=== PATIENT | male | born 1965 | race Caucasian/White ===

== ENCOUNTER 2017-05-05 03:10 | Emergency (ER) | payer OTHER ==
[~2017-05-05] VITALS: Ht 162.6 cm; Wt 45.4 kg
[~2017-05-05 03:10] MED LIST: ACET500 PT; AMOX250 PO; ANUCORT-HC SUPP; AZIT250 PO; Anucort-Hc25 MG PR; BENZ100A PO; BISA5EC GT; BISA5EC PO; CALMOSEPTINE O3.5 GM TP; CEPH250SUA PT; CETI5 PO; CETI5 PT; CLIN300 PT; COLON HEALTH; CVS DISPOSABLE399 ML PR; Docu Liqui50 MG/5 ML PT; EAR WAX DROPS15 ML BOTHEARS; ERYT.5TO BOTHEYES; ERYT.5TO OU; FLUO10 GT; FLUO20 PO; Fluoxetine HCl20 M1 PT; HYDACE25S; HYDR25SUP PR; JEVITY 1.2 CAL237 ML PO; LAVAP17G GT; LEVFLO500 PO; LEVSOD50 PO; LISI5 GT; LISI5 PO; METO10SY PO; MIRALAX119 GM PT; NYST100TC; OXYB5 GT; OXYB5 PO; POLY17UD PO; PSEU120ER PO; Prevacid Soluta30 MG PT; Triple Antibio1 EACH; Zofran Odt4 MG SL; [UNRECOGNIZED DRUG - SUPPLY]
[2018-02-10] MEDS ORDERED: LANS30EC (16:32)
[2018-02-10] MEDS ORDERED: MIRALAX17 GM (16:33)
== END 2017-05-05 03:55 | disposition home or self-care (01) ==
LOC: ER 03:10
DX: K94.23 Gastrostomy malfunction (principal); Z79.899 Other long term (current) drug therapy; Z79.2 Long term (current) use of antibiotics
CPT/HCPCS: 43760; 99282

== ENCOUNTER 2017-07-20 21:01 | Emergency (ER) | payer OTHER ==
[~2017-07-20] VITALS: Ht 154.9 cm; Wt 45.4 kg
[2017-07-20] MEDS ORDERED: Milk Of Ma400 MG/5 M PO (21:23)
[2017-07-20] MEDS ORDERED: [UNRECOGNIZED DRUG - CODE] PO (21:23)
[2017-07-20] MEDS ORDERED: LISI5 (21:25)
[2017-07-20] MEDS ORDERED: OXYB5 PO (21:27)
== END 2017-07-20 22:52 | disposition home or self-care (01) ==
LOC: ER 21:01
DX: K94.23 Gastrostomy malfunction (principal); Z79.899 Other long term (current) drug therapy; Z79.2 Long term (current) use of antibiotics
CPT/HCPCS: 43760; 74018; 99283; Q9963

== ENCOUNTER 2017-08-27 12:04 | Emergency (ER) | payer OTHER ==
[~2017-08-27] VITALS: Ht 152.4 cm; Wt 52.2 kg
[~2017-08-27 12:04] MED LIST changes: +LISI5; +Milk Of Ma400 MG/5 M PO; +[UNRECOGNIZED DRUG - CODE] PO
[2017-08-27] MEDS ORDERED: Mucus Relief400 MG PT (12:52)
[2017-08-27] MEDS ORDERED: MIRALAX17 GM PO (12:52)
[2017-08-27 13:33] LABS: Source, Urine Catheter
[2017-08-27 13:38] LABS: Bilirubin, Urine Neg (Neg); Blood, Urine 1+ (Neg); Glucose Qualitative, Urine Neg (Neg); Ketones, Urine Neg (Neg); Leukocyte Esterase, Urine 2+ (Neg); Nitrite, Urine Neg (Neg); Protein, Urine Neg (Neg); Urobilinogen, Urine NORM (Normal)
[2017-08-27 13:49] LABS: Appearance, Urine Clear (Clear); Color, Urine Pale Yellow (P-Yellow)
[2017-08-27 13:53] LABS: Red Blood Cells, Urine Not Seen /hpf (0-2); Squamous Epithelial Cells Few /hpf (Few)
[2017-08-27 13:54] LABS: Bacteria Few /hpf
[2017-08-27 14:08] LABS: BASOPHILS ABSOLUTE AUTO 0.04 K/mm3 (0.00-0.23); BASOPHILS PERCENT AUTO 1 % (0-2); EOSINOPHILS ABSOLUTE AUTO 0.23 K/mm3 (0.00-0.68); EOSINOPHILS PERCENT AUTO 3 % (0-6); Hematocrit 46.5 % (37.0-53.0); Hemoglobin 15.6 g/dL (13.5-17.5); IMMATURE GRAN ABSOLUTE AUTO 0.09 K/mm3 (0.00-0.10); IMMATURE GRAN PERCENT AUTO 1 % (0-1); LYMPHOCYTES ABSOLUTE AUTO 1.12 K/mm3 (0.84-5.20); LYMPHOCYTES PERCENT AUTO 13 % (21-46); MONOCYTES ABSOLUTE AUTO 0.73 K/mm3 (0.16-1.47); MONOCYTES PERCENT AUTO 8 % (4-13); Mean Corpuscular HGB 30.9 pg (26.0-34.0); Mean Corpuscular HGB Conc 33.5 g/dL (31.5-36.5); Mean Corpuscular Volume 92 fL (80-100); Mean Platelet Volume 11.4 fL (9.1-12.4); NEUTROPHILS ABSOLUTE AUTO 6.45 K/mm3 (1.96-9.15); NEUTROPHILS PERCENT AUTO 75 % (41-73); Platelet Count 199 K/mm3 (150-400); RDW Coefficient Variation 12.5 % (11.7-14.2); Red Blood Cell Count 5.05 M/mm3 (4.30-5.90); White Blood Cell Count 8.66 K/mm3 (4.00-11.30)
[2017-08-27 14:21] LABS: Anion Gap 9 mmol/L (6-16); Blood Urea Nitrogen 19 mg/dL (8-24); Bun/Creatinine Ratio 44.5 (12.0-20.0); CO2, Blood 26 mmol/L (21-32); Calcium, Blood 8.8 mg/dL (8.5-10.1); Chloride, Blood 106 mmol/L (98-108); Creatinine, Blood 0.43 mg/dL (0.60-1.20); Glomerular Filtration Rate >60 (60-); Glucose, Blood 91 mg/dL (70-99); Potassium, Blood 4.1 mmol/L (3.5-5.5); Sodium, Blood 141 mmol/L (136-145)
[2017-08-27] MEDS ORDERED: Indomethacin50 MG PO (14:42)
[2017-08-27] MEDS ORDERED: CEPH500 PO (14:42)
[2017-08-27] MEDS ORDERED: Prednisone20 MG PO (14:42)
== END 2017-08-27 15:40 | disposition home or self-care (01) ==
LOC: ER 12:04
PROVIDERS: Emergency Medicine
DX: L60.0 Ingrowing nail (principal); N39.0 Urinary tract infection, site not specified; Z79.899 Other long term (current) drug therapy
CPT/HCPCS: 73620; 80048; 81001; 85025; 87086; 99283

== ENCOUNTER 2017-11-09 13:06 | Emergency (ER) | payer OTHER ==
[~2017-11-09] VITALS: Ht 152.4 cm; Wt 49.9 kg
[~2017-11-09 13:06] MED LIST changes: +CEPH500 PO; +Indomethacin50 MG PO; +MIRALAX17 GM PO; +Mucus Relief400 MG PT; +Prednisone20 MG PO
== END 2017-11-09 14:50 | disposition home or self-care (01) ==
LOC: ER 13:06
DX: Z43.1 Encounter for attention to gastrostomy (principal); Z79.899 Other long term (current) drug therapy; Z79.52 Long term (current) use of systemic steroids
CPT/HCPCS: 43760; 74018; 99282-25; Q9963

== ENCOUNTER 2018-01-19 19:57 | Emergency (ER) | payer OTHER ==
[~2018-01-19] VITALS: Ht 152.4 cm; Wt 49.9 kg
[2018-01-19 20:37] LABS: Source, Urine Catheter
[2018-01-19 20:40] LABS: Bilirubin, Urine Neg (Neg); Blood, Urine Neg (Neg); Glucose Qualitative, Urine Neg (Neg); Ketones, Urine Neg (Neg); Leukocyte Esterase, Urine 1+ (Neg); Nitrite, Urine Neg (Neg); Protein, Urine Neg (Neg); Urobilinogen, Urine NORM (Normal)
[2018-01-19 20:53] LABS: Appearance, Urine Hazy (Clear); Color, Urine Yellow (P-Yellow)
[2018-01-19 20:56] LABS: Bacteria Mod /hpf; Red Blood Cells, Urine Not Seen /hpf (0-2); Squamous Epithelial Cells Not Seen /hpf (Few); White Blood Cells, Urine 25-50 /hpf (0-5)
[2018-01-19 20:57] LABS: Amorphous Light (0-Heavy); Triple Phosphate Crystals Mod /hpf
[2018-01-19 21:24] LABS: BASOPHILS ABSOLUTE AUTO 0.04 K/mm3 (0.00-0.23); BASOPHILS PERCENT AUTO 1 % (0-2); EOSINOPHILS ABSOLUTE AUTO 0.37 K/mm3 (0.00-0.68); EOSINOPHILS PERCENT AUTO 5 % (0-6); IMMATURE GRAN ABSOLUTE AUTO 0.06 K/mm3 (0.00-0.10); IMMATURE GRAN PERCENT AUTO 1 % (0-1); LYMPHOCYTES ABSOLUTE AUTO 1.15 K/mm3 (0.84-5.20); LYMPHOCYTES PERCENT AUTO 15 % (21-46); MONOCYTES ABSOLUTE AUTO 0.68 K/mm3 (0.16-1.47); MONOCYTES PERCENT AUTO 9 % (4-13); Mean Corpuscular HGB 30.9 pg (26.0-34.0); Mean Corpuscular HGB Conc 33.3 g/dL (31.5-36.5); Mean Corpuscular Volume 93 fL (80-100); Mean Platelet Volume 10.5 fL (9.1-12.4); NEUTROPHILS ABSOLUTE AUTO 5.29 K/mm3 (1.96-9.15); NEUTROPHILS PERCENT AUTO 70 % (41-73); Platelet Count 427 K/mm3 (150-400); RDW Coefficient Variation 12.4 % (11.7-14.2); Red Blood Cell Count 4.85 M/mm3 (4.30-5.90); White Blood Cell Count 7.59 K/mm3 (4.00-11.30)
[2018-01-19 21:39] LABS: Alanine Aminotransfer (ALT/SGP 28 U/L (12-78); Albumin, Blood 3.3 g/dL (3.4-5.0); Albumin/Globulin Ratio 0.7 (0.8-1.8); Alk Phos 100 U/L (50-136); Anion Gap 10 mmol/L (6-16); Aspartate Aminotrans (AST/SGOT 15 U/L (12-37); Bilirubin, Total 0.6 mg/dL (0.1-1.0); Blood Urea Nitrogen 16 mg/dL (8-24); Bun/Creatinine Ratio 42.4 (12.0-20.0); CO2, Blood 25 mmol/L (21-32); Calcium, Blood 8.7 mg/dL (8.5-10.1); Chloride, Blood 105 mmol/L (98-108); Creatinine, Blood 0.38 mg/dL (0.60-1.20); Globulin, Blood 4.9 g/dL (2.2-4.0); Glomerular Filtration Rate >60 (60-); Glucose, Blood 93 mg/dL (70-99); Potassium, Blood 4.2 mmol/L (3.5-5.5); Sodium, Blood 140 mmol/L (136-145); Total Protein, Blood 8.2 g/dL (6.4-8.2)
== END 2018-01-19 22:50 | disposition home or self-care (01) ==
LOC: ER 19:57
PROVIDERS: Internal Medicine
DX: R10.9 Unspecified abdominal pain (principal); Z79.899 Other long term (current) drug therapy; Z87.442 Personal history of urinary calculi
CPT/HCPCS: 36415; 74176; 80053; 81001; 85025; 87077; 87086; 87186; 96374; 99284-25; J1885

== ENCOUNTER → 2018-04-11 | Outpatient (CLI) | payer OTHER ==
[~2018-04-11] MED LIST changes: +LANS30EC; +MIRALAX17 GM
== END | disposition home or self-care (01) ==
LOC: LAB SHORT 16:39 → LAB 16:39
DX: L08.0 Pyoderma (principal)
CPT/HCPCS: 87070; 87205

== ENCOUNTER 2018-04-24 12:29 | Emergency (ER) | payer OTHER ==
[~2018-04-24] VITALS: Ht 152.4 cm; Wt 49.9 kg
== END 2018-04-24 15:10 | disposition home or self-care (01) ==
LOC: ER 12:29
DX: K94.23 Gastrostomy malfunction (principal); Z79.899 Other long term (current) drug therapy
CPT/HCPCS: 49465; 99283-25; Q9963

== ENCOUNTER 2019-07-11 00:21 | Day surgery (SDC) | payer OTHER | END 2019-07-11 22:55 | disposition home or self-care (01) | LOC: WOUND 00:21 | DX: L89.891 Pressure ulcer of other site, stage 1 (principal); Z79.899 Other long term (current) drug therapy | CPT/HCPCS: G0463 ==

== ENCOUNTER 2019-08-01 00:15 | Day surgery (SDC) | payer OTHER | END 2019-08-01 22:41 | disposition home or self-care (01) | LOC: WOUND 00:15 | DX: L89.91 Pressure ulcer of unspecified site, stage 1 (principal); E03.9 Hypothyroidism, unspecified; Z79.899 Other long term (current) drug therapy | CPT/HCPCS: G0463 ==

== ENCOUNTER 2019-08-17 10:30 | Day surgery (SDC) | payer OTHER ==
[~2019-08-17] VITALS: Ht 152.4 cm; Wt 57.7 kg
--- NOTE | 2019-08-17 11:39 | NUR ---
08/17/19 1139 Vidya Ramachandran PATIENT IS NON VERBAL BUT AWARE AND ANSWERS QUESTIONS BY BLINKING AND SHAKING HIS HEAD. HE RESPONDS APPROPRIATELY TO ALL QUESTIONS, LAUGHS AT JOKES AND IS AWARE OF ALL THAT IS GOING ON AROUND HIM. PATIENT AGREES WITH HIS CAREGIVER TO SIGN CONSENTS
--- NOTE | 2019-08-17 15:07 | NUR ---
08/17/19 1507 Vidya Ramachandran LATE ENTRY------IV ANCEF 2GMS WAS ORDERED BY DR BECERRIL AT THE END OF THE PROCEDURE. THIS WAS STARTED AT 1229 AND FINISHED BY 1245. THE PATIENT TOLERATED THIS WELL AND THERE WAS NO PROBLEMS. I REMOVED THE IV AT 1250, THE SITE WAS CLEAR AND THERE WAS APPX 800ML OF LR LEFT IN THE BAG. THE PATIENT CARE WAS TURNED OVER TO AB KESSLER AT 1258
== END 2019-08-17 13:26 | disposition home or self-care (01) ==
LOC: ORSCSDS 10:30
PROVIDERS: Internal Medicine Gastroenterology
PROC: 0DH63UZ Insertion of Feeding Device into Stomach, Percutaneous Approach (ICD-10-PCS; principal; 2019-08-17 11:45)
DX: K94.23 Gastrostomy malfunction (principal); K44.9 Diaphragmatic hernia without obstruction or gangrene; K31.7 Polyp of stomach and duodenum; G80.9 Cerebral palsy, unspecified; I10 Essential (primary) hypertension; Z79.899 Other long term (current) drug therapy
CPT/HCPCS: C1769; J0690; J2704; J7120

== ENCOUNTER 2019-12-05 13:49 | Emergency (ER) | payer OTHER ==
[~2019-12-05] VITALS: Ht 157.5 cm; Wt 50.8 kg
[2019-12-05] MEDS ORDERED: ALUMINUM H320 MG/5 M PO (18:59)
[2019-12-05] MEDS ORDERED: NYAMYC15 G2 TP (19:00)
[2019-12-05] MEDS ORDERED: ONDA4ODT MM (19:00)
[2019-12-05 19:25] LABS: BASOPHILS ABSOLUTE AUTO 0.04 K/mm3 (0.00-0.23); BASOPHILS PERCENT AUTO 0 % (0-2); EOSINOPHILS ABSOLUTE AUTO 0.21 K/mm3 (0.00-0.68); EOSINOPHILS PERCENT AUTO 2 % (0-6); Hematocrit 48.8 % (37.0-53.0); Hemoglobin 14.5 g/dL (13.5-17.5); IMMATURE GRAN ABSOLUTE AUTO 0.05 K/mm3 (0.00-0.10); IMMATURE GRAN PERCENT AUTO 1 % (0-1); LYMPHOCYTES ABSOLUTE AUTO 1.03 K/mm3 (0.84-5.20); LYMPHOCYTES PERCENT AUTO 10 % (21-46); MONOCYTES ABSOLUTE AUTO 0.75 K/mm3 (0.16-1.47); MONOCYTES PERCENT AUTO 7 % (4-13); Mean Corpuscular HGB 29.2 pg (26.0-34.0); Mean Corpuscular HGB Conc 29.7 g/dL (31.5-36.5); Mean Corpuscular Volume 98 fL (80-100); Mean Platelet Volume 11.8 fL (9.1-12.4); NEUTROPHILS ABSOLUTE AUTO 8.36 K/mm3 (1.96-9.15); NEUTROPHILS PERCENT AUTO 80 % (41-73); Platelet Count 337 K/mm3 (150-400); RDW Coefficient Variation 16.5 % (11.7-14.2); RDW Standard Deviation 59.6 fL (35.1-46.3); Red Blood Cell Count 4.97 M/mm3 (4.30-5.90); White Blood Cell Count 10.44 K/mm3 (4.00-11.30)
[2019-12-05 19:42] LABS: Alanine Aminotransfer (ALT/SGP 21 U/L (12-78); Albumin, Blood 2.9 g/dL (3.4-5.0); Albumin/Globulin Ratio 0.4 (0.8-1.8); Alk Phos 114 U/L (50-136); Anion Gap 7 mmol/L (6-16); Aspartate Aminotrans (AST/SGOT 9 U/L (12-37); Bilirubin, Total 0.8 mg/dL (0.1-1.0); Blood Urea Nitrogen 84 mg/dL (8-24); Bun/Creatinine Ratio 81.6 (12.0-20.0); CO2, Blood 25 mmol/L (21-32); Calcium, Blood 10.2 mg/dL (8.5-10.1); Chloride, Blood 123 mmol/L (98-108); Creatinine, Blood 1.03 mg/dL (0.60-1.20); Globulin, Blood 6.5 g/dL (2.2-4.0); Glomerular Filtration Rate >60 (60-); Glucose, Blood 143 mg/dL (70-99); Potassium, Blood 3.8 mmol/L (3.5-5.5); Sodium, Blood 155 mmol/L (136-145); Total Protein, Blood 9.4 g/dL (6.4-8.2)
[2019-12-05] MEDS ORDERED: HYDROCODON-ACET15 ML PT (21:22)
== END 2019-12-05 21:52 | disposition home or self-care (01) ==
LOC: ER 13:49
PROVIDERS: Physician Assistant
DX: M79.651 Pain in right thigh (principal); M79.652 Pain in left thigh; E86.0 Dehydration; Z79.899 Other long term (current) drug therapy
CPT/HCPCS: 36415; 72100; 72170; 73552; 80053; 85025; 99283-25

== ENCOUNTER 2020-01-03 11:06 | Observation (INO) | payer OTHER ==
[~2020-01-03] VITALS: Ht 152.4 cm; Wt 49.9 kg
[~2020-01-03 11:06] MED LIST changes: +ALUMINUM H320 MG/5 M PO; -CETI5 PT; +EUTHYROX50 MCG PT; +HYDROCODON-ACET15 ML PT; -LEVSOD50 PO; +NYAMYC15 G2 TP; +ONDA4ODT MM; +ZYRTEC10 M2 PT
[2020-01-03 13:58] LABS: Alanine Aminotransfer (ALT/SGP 26 U/L (12-78); Albumin, Blood 2.8 g/dL (3.4-5.0); Albumin/Globulin Ratio 0.5 (0.8-1.8); Alk Phos 113 U/L (50-136); Anion Gap 4 mmol/L (6-16); Aspartate Aminotrans (AST/SGOT 22 U/L (12-37); Bilirubin, Total 0.4 mg/dL (0.1-1.0); Blood Urea Nitrogen 79 mg/dL (8-24); Bun/Creatinine Ratio 106.3 (12.0-20.0); CO2, Blood 29 mmol/L (21-32); Calcium, Blood 9.7 mg/dL (8.5-10.1); Chloride, Blood 121 mmol/L (98-108); Creatinine, Blood 0.74 mg/dL (0.60-1.20); Globulin, Blood 5.8 g/dL (2.2-4.0); Glomerular Filtration Rate >60 (60-); Glucose, Blood 83 mg/dL (70-99); Potassium, Blood 4.1 mmol/L (3.5-5.5); Sodium, Blood 154 mmol/L (136-145); Total Protein, Blood 8.6 g/dL (6.4-8.2)
[2020-01-03] MEDS ORDERED: Prozac20 MG PT (15:07)
[2020-01-03] MEDS ORDERED: PANT40 PT (15:08)
[2020-01-03] MEDS ORDERED: Docu Liqui50 MG/5 ML PT (15:09)
[2020-01-03 15:31] LABS: BASOPHILS ABSOLUTE AUTO 0.02 K/mm3 (0.00-0.23); BASOPHILS PERCENT AUTO 0 % (0-2); EOSINOPHILS ABSOLUTE AUTO 0.24 K/mm3 (0.00-0.68); EOSINOPHILS PERCENT AUTO 2 % (0-6); Hematocrit 51.3 % (37.0-53.0); Hemoglobin 14.6 g/dL (13.5-17.5); IMMATURE GRAN ABSOLUTE AUTO 0.04 K/mm3 (0.00-0.10); IMMATURE GRAN PERCENT AUTO 0 % (0-1); LYMPHOCYTES ABSOLUTE AUTO 1.24 K/mm3 (0.84-5.20); LYMPHOCYTES PERCENT AUTO 10 % (21-46); MONOCYTES ABSOLUTE AUTO 0.47 K/mm3 (0.16-1.47); MONOCYTES PERCENT AUTO 4 % (4-13); Mean Corpuscular HGB 28.1 pg (26.0-34.0); Mean Corpuscular HGB Conc 28.5 g/dL (31.5-36.5); Mean Corpuscular Volume 99 fL (80-100); Mean Platelet Volume 11.8 fL (9.1-12.4); NEUTROPHILS ABSOLUTE AUTO 9.91 K/mm3 (1.96-9.15); NEUTROPHILS PERCENT AUTO 83 % (41-73); Platelet Count 254 K/mm3 (150-400); RDW Coefficient Variation 16.5 % (11.7-14.2); RDW Standard Deviation 60.2 fL (35.1-46.3); Red Blood Cell Count 5.19 M/mm3 (4.30-5.90); White Blood Cell Count 11.92 K/mm3 (4.00-11.30)
[2020-01-03] MEDS ORDERED: ACET500 PT (18:42)
[2020-01-03] MEDS ORDERED: ALUMINUM H320 MG/5 M PT (18:44)
[2020-01-03] MEDS ORDERED: BISA5EC PT (18:45)
[2020-01-03] MEDS ORDERED: CETAPHIL LOTION TOP (18:47)
[2020-01-03] MEDS ORDERED: CLOB.05TO TOP (18:51)
--- NOTE | 2020-01-03 19:00 | NUR ---
ASSUMED CARE RECEIVED REPORT FROM AB GAMEZ. ASSUMED CARE OF PT. RESTING COMFORTABLY AT THIS TIME, NO S/S ACUTE DISTRESS NOTED. CAREGIVER AT THE BEDSIDE. IVF ONGOING. PT DENIES NEEDS AT THIS TIME. CALL LIGHT, POSSESSIONS IN REACH, BED IN LOW POSITION WITH ALARMS ON. WILL CONTINUE TO MONITOR.
[2020-01-03] MEDS ORDERED: MINERAL OIL135 ML PR (19:06)
[2020-01-03] MEDS ORDERED: GAS RELIEF PT (19:09)
--- NOTE | 2020-01-03 19:09 | NUR ---
SHIFT SUMMARY PT ADMITTED TO UNIT AT 1800. PT IV INFUSING 1L NS BOLUS. PT IS IN BED, SOFT TOUCH CALL LIGHT IN REACH, BED IN LOW POSITION.
[2020-01-03] MEDS ORDERED: HYDROCODONE AC PT (19:11)
[2020-01-03] MEDS ORDERED: JUVEN PACKET1 EAC3 PT (19:12)
[2020-01-03] MEDS ORDERED: NYAMYC15 G1 TOP (19:14)
[2020-01-03] MEDS ORDERED: Ketoconazole120 ML TOP (19:14)
[2020-01-03] MEDS ORDERED: ZOFRAN4 MG/5 ML PT (19:15)
[2020-01-03] MEDS ORDERED: MIRALAX17 GM PO (19:17)
[2020-01-03] MEDS ORDERED: SILACE PT (19:18)
[2020-01-03] MEDS ORDERED: Triple Antibi28.4 G1 TOP (19:20)
--- NOTE | 2020-01-03 19:58 | NUR ---
NOTIFIED DR. FIGUEREDO OF PT'S LACTIC ACID RESULT. NO NEW ORDERS RECEIVED AT THIS TIME. CONTINUE TO MONITOR.
--- NOTE | 2020-01-03 20:10 | NUR ---
PT OFF FLOOR FOR CXR. TRANSFERRED TO [facility] WITH ASSIST OF 3.
--- NOTE | 2020-01-03 20:30 | NUR ---
PT ARRIVED BACK TO ROOM FROM XRAY. TRANSFERRED BACK TO BED. SITUATED AND MADE COMFORTABLE. CALL LIGHT AND POSSESSIONS IN REACH, BED IN LOW POSITION WITH ALARM ON.
--- NOTE | 2020-01-04 05:56 | NUR ---
SHIFT SUMMARY PT HAS HAD A FAIRLY UNEVENTFUL NIGHT, SLEPT ON AND OFF. NO ACUTE CHANGES IN CONDITION NOTED. TOLERATED MEDS PT AND FLUSHES WELL, NO S/S ASPIRATION NOTED, NO N/V. HOB >30 DEGREES VS REVIEWED, O2 SATS STABLE ON RA, PT ORAL SUCTIONED PRN TO MANAGE SECRETIONS. REFUSED AM LABS, PREVIOUS LACTIC ACID DECREASED FROM INITIAL READING. PT REFUSING REPOSITIONING. DENIES OTHER NEEDS AT THIS TIME. IVF ONGOING. EASY-TOUCH CALL LIGHT, POSSESSIONS IN REACH. BED IN LOW POSITION WITH ALARMS ON. WILL CONTINUE TO MONITOR UNTIL DAY RN ASSUMES CARE.
[2020-01-04 09:51] LABS: BASOPHILS ABSOLUTE AUTO 0.03 K/mm3 (0.00-0.23); BASOPHILS PERCENT AUTO 0 % (0-2); EOSINOPHILS ABSOLUTE AUTO 0.32 K/mm3 (0.00-0.68); EOSINOPHILS PERCENT AUTO 3 % (0-6); Hematocrit 40.1 % (37.0-53.0); Hemoglobin 11.5 g/dL (13.5-17.5); IMMATURE GRAN ABSOLUTE AUTO 0.02 K/mm3 (0.00-0.10); IMMATURE GRAN PERCENT AUTO 0 % (0-1); LYMPHOCYTES ABSOLUTE AUTO 1.13 K/mm3 (0.84-5.20); LYMPHOCYTES PERCENT AUTO 12 % (21-46); MONOCYTES ABSOLUTE AUTO 0.46 K/mm3 (0.16-1.47); MONOCYTES PERCENT AUTO 5 % (4-13); Mean Corpuscular HGB 28.3 pg (26.0-34.0); Mean Corpuscular HGB Conc 28.7 g/dL (31.5-36.5); Mean Corpuscular Volume 99 fL (80-100); Mean Platelet Volume 11.9 fL (9.1-12.4); NEUTROPHILS ABSOLUTE AUTO 7.52 K/mm3 (1.96-9.15); NEUTROPHILS PERCENT AUTO 79 % (41-73); Platelet Count 216 K/mm3 (150-400); RDW Standard Deviation 61.7 fL (35.1-46.3); Red Blood Cell Count 4.06 M/mm3 (4.30-5.90); White Blood Cell Count 9.48 K/mm3 (4.00-11.30)
[2020-01-04 10:11] LABS: Anion Gap 4 mmol/L (6-16); Blood Urea Nitrogen 50 mg/dL (8-24); Bun/Creatinine Ratio 52.1 (12.0-20.0); CO2, Blood 29 mmol/L (21-32); Calcium, Blood 8.5 mg/dL (8.5-10.1); Chloride, Blood 124 mmol/L (98-108); Creatinine, Blood 0.96 mg/dL (0.60-1.20); Glomerular Filtration Rate >60 (60-); Glucose, Blood 131 mg/dL (70-99); Potassium, Blood 3.4 mmol/L (3.5-5.5); Sodium, Blood 157 mmol/L (136-145)
--- NOTE | 2020-01-04 10:55 | NUR ---
Initial palliative care consult: Man is a 54 year old gentleman with a history of cerebral palsy and scoliosis. He was admitted to [facility] on 01/03/20 with suspected aspiration pneumonia after he vomited about 45 minutes after receiving his tube feedins at home at [facility]. Man has thick offwhite secrections coming from his trach. Encouraged him to cough and this science writer was able to suction the secretions at the level of the trach opening to clear his airway. He is nonverbal but is able to communicate with nodding yes/no to questions. He affirmed that he was able to breathe better once secretions were cleared. Cleaned his eyes bilat that were matted with off white secretions. Washed his face and cleaned out old dried crusts from his garza. He was appreciative of the care. He denies any symptoms and has no requests once his trach was suctioned and his face washed. He is in no acute distress during the time of this visit. He has a peg tube, urostomy tube and a carroll in place. Updated nursing. Nursing requests that Darrin's caregiver bring in a new urostomy appliance when they visit so that a UA can be collected. Spoke with Lena, caregiver at [facility]. Lena reports that Darrin at baseline is nonverbal and "Is very particular about things." He likes to have everything that is being done to him explained well. He likes his water and formula to be refrigerated and he does not like tap water used for his water or meds. Lena reports that sometimes Darrin will refuse care at home. He is a dhruv lift for transfers. Lena also reports Darrin's temperature usually runs mid 98 - 99 degrees F. Darrin has been a resident of the home Lena works in since last spring. He has lived within the [facility] system for the past 15 years per Lena. Lena states Darrin has a sister, Jerrell, "Who is very sensitive." Jerrell lives in [place] and is planning to trip to [place] in about 2 weeks to visit with Darrin. Lena states that Jerrell has been updated and is aware that Darrin is currently at [facility]. Discussed who is the decision maker for Darrin. Lena states "We as a team make decisions for his care. Jerrell helps make those decisions but Darrin does not want Jerrell to be the only decision maker." Lena also states that Jerrell would not be open to palliative or end of life care. Explained to her that palliative care is much more than end of life care. Darrin is a full code at this time. Lena plans to come visit with Darrin this afternoon and will plan to bring in a urostomy appliance for nursing. Nursing updated on conversation with Lena and pt's likes/dislikes. PC will continue to follow for advanced care planning and symptom management.
--- NOTE | 2020-01-04 11:23 | NUR ---
WE HAD LOST PATIENT'S IV ACCESS. CHARGE WAS ABLE TO PLACE AN EXTENDED DWELL CATHETER FOR IV ACCESS AND LAB DRAWS. THIS DRAWS WELL AND PATIENT IS PLEASANT. HE DID DENY WANT FOR TUBE FEEDINGS RIGHT NOW. HE ALSO DENIES ANY CURRENT WANT FOR HIS TUBE FEEDINGS. HE DENIES PAIN OR ANXIETY. HE REQUESTS THAT HIS WATER BE COLD AND HIS FORMULA COLD HE FEELS LESS NAUSEATED AFTER A FEEDING WHEN THIS HAPPENS. HE REQUESTS TIME TO SLEEP AT THIS TIME.
--- NOTE | 2020-01-04 12:18 | NUR ---
PATIENT IS CONTENT AT THIS TIME. HE DENIES ANY PAIN, DOES NOT WANT TO BE BOTHERED. WILL ASSESS FOR TUBE FEEDING ACCEPTANCE AT HIS 1530 FEEDING TIME. CURRENTLY THE PATIENT DENIES HUNGER, DENIES NAUSEA, BUT DOES NOT WANT ANYTHING GOING THROUGH IS TUBE. HE HAS A NEW LINE AT THIS TIME AND IS RUNNING WELL.
[2020-01-04] MEDS ORDERED: AMOCLA250S PT (16:23)
[2020-01-04] MEDS ORDERED: LACT PT (16:23)
--- NOTE | 2020-01-04 16:55 | NUR ---
PATIENT'S NURSE AT BEDSIDE. IV REMOVED. NO ACUTE CONCERNS AT THIS TIME. HE IS AGREEABLE TO GOING HOME. DENIES ANY CURRENT CONCERNS. PATIENT'S CAREGIVER AND PRIMARY NURSE TO THE BEDSIDE FOR DISCHARGE. ALL QUESTIONS ANSWERED. MEDICATIONS SENT TO PHARMACY OF CHOICE.
== END 2020-01-04 17:27 | disposition home or self-care (01) ==
LOC: ER 11:06 → ERHOLD 11:07 → MEDS 11:07
PROVIDERS: Emergency Medicine; ADMIT Internal Medicine
DX: R11.2 Nausea with vomiting, unspecified (principal); J69.0 Pneumonitis due to inhalation of food and vomit; J96.01 Acute respiratory failure with hypoxia; L89.151 Pressure ulcer of sacral region, stage 1; E87.0 Hyperosmolality and hypernatremia; E87.2 Acidosis; E86.0 Dehydration; G80.9 Cerebral palsy, unspecified; M41.9 Scoliosis, unspecified; N31.9 Neuromuscular dysfunction of bladder, unspecified; I10 Essential (primary) hypertension; E03.9 Hypothyroidism, unspecified; F32.9 Major depressive disorder, single episode, unspecified; K21.9 Gastro-esophageal reflux disease without esophagitis; K59.09 Other constipation; Z23 Encounter for immunization; Z87.01 Personal history of pneumonia (recurrent); Z99.3 Dependence on wheelchair; Z79.899 Other long term (current) drug therapy; Z93.0 Tracheostomy status; Z93.1 Gastrostomy status; Z93.6 Other artificial openings of urinary tract status; Z74.01 Bed confinement status
CPT/HCPCS: 36415; 71045; 74018; 80048; 80053; 83605; 84145; 84295; 85025; 96365; 96366; 96372; 96374; 96375; 96376; 99285-25; A9270-GY; G0378; J1650; J2405; J2543; J7030; J7050; J7070

== ENCOUNTER 2020-02-04 11:35 | Day surgery (SDC) | payer OTHER ==
[~2020-02-04 11:35] MED LIST changes: +ALUMINUM H320 MG/5 M PT; +AMOCLA250S PT; +BISA5EC PT; +CETAPHIL LOTION TOP; +CLOB.05TO TOP; +GAS RELIEF PT; +HYDROCODONE AC PT; +JUVEN PACKET1 EAC3 PT; +Ketoconazole120 ML TOP; +LACT PT; +MINERAL OIL135 ML PR; +NYAMYC15 G1 TOP; +PANT40 PT; +Prozac20 MG PT; +SILACE PT; +Triple Antibi28.4 G1 TOP; +ZOFRAN4 MG/5 ML PT
== END 2020-02-04 23:18 | disposition home or self-care (01) ==
LOC: WOUND 11:35
DX: I96 Gangrene, not elsewhere classified (principal); L89.153 Pressure ulcer of sacral region, stage 3; G80.9 Cerebral palsy, unspecified; N31.9 Neuromuscular dysfunction of bladder, unspecified; N39.498 Other specified urinary incontinence; E03.9 Hypothyroidism, unspecified; K21.9 Gastro-esophageal reflux disease without esophagitis; Z79.899 Other long term (current) drug therapy; Z93.0 Tracheostomy status; Z93.1 Gastrostomy status; Z51.5 Encounter for palliative care
CPT/HCPCS: G0463

== ENCOUNTER 2020-02-18 00:21 | Day surgery (SDC) | payer OTHER | END 2020-02-18 22:51 | disposition home or self-care (01) | LOC: WOUND 00:21 | DX: I96 Gangrene, not elsewhere classified (principal); L89.153 Pressure ulcer of sacral region, stage 3; G80.9 Cerebral palsy, unspecified; E03.9 Hypothyroidism, unspecified; N31.9 Neuromuscular dysfunction of bladder, unspecified; K21.9 Gastro-esophageal reflux disease without esophagitis; Z79.899 Other long term (current) drug therapy | CPT/HCPCS: G0463 ==

== ENCOUNTER 2020-02-25 00:16 | Day surgery (SDC) | payer OTHER | END 2020-02-25 22:44 | disposition home or self-care (01) | LOC: WOUND 00:16 | DX: I96 Gangrene, not elsewhere classified (principal); L89.153 Pressure ulcer of sacral region, stage 3; G80.9 Cerebral palsy, unspecified; E03.9 Hypothyroidism, unspecified; N31.9 Neuromuscular dysfunction of bladder, unspecified; N39.498 Other specified urinary incontinence; K21.9 Gastro-esophageal reflux disease without esophagitis; F32.89 Other specified depressive episodes; Z79.899 Other long term (current) drug therapy; Z79.2 Long term (current) use of antibiotics | CPT/HCPCS: G0463 ==

== ENCOUNTER 2020-03-10 00:28 | Day surgery (SDC) | payer OTHER | END 2020-03-10 22:58 | disposition home or self-care (01) | LOC: WOUND 00:28 | DX: I96 Gangrene, not elsewhere classified (principal); L89.153 Pressure ulcer of sacral region, stage 3; G80.9 Cerebral palsy, unspecified; E03.9 Hypothyroidism, unspecified; N31.9 Neuromuscular dysfunction of bladder, unspecified; K21.9 Gastro-esophageal reflux disease without esophagitis; F32.89 Other specified depressive episodes; Z79.899 Other long term (current) drug therapy | CPT/HCPCS: G0463 ==

== ENCOUNTER 2020-03-24 00:46 | Day surgery (SDC) | payer OTHER | END 2020-03-24 23:10 | disposition home or self-care (01) | LOC: WOUND 00:46 | DX: L89.153 Pressure ulcer of sacral region, stage 3 (principal); L89.322 Pressure ulcer of left buttock, stage 2; G80.9 Cerebral palsy, unspecified; E03.9 Hypothyroidism, unspecified; K21.9 Gastro-esophageal reflux disease without esophagitis; N39.498 Other specified urinary incontinence; N31.9 Neuromuscular dysfunction of bladder, unspecified | CPT/HCPCS: A9270; G0463 ==

== ENCOUNTER 2020-04-01 00:27 | Day surgery (SDC) | payer OTHER | END 2020-04-01 23:15 | disposition home or self-care (01) | LOC: WOUND 00:27 | DX: L89.152 Pressure ulcer of sacral region, stage 2 (principal); G80.9 Cerebral palsy, unspecified | CPT/HCPCS: A9270 ==

== ENCOUNTER 2020-04-15 00:17 | Day surgery (SDC) | payer OTHER | END 2020-04-15 23:45 | LOC: WOUND 00:17 | DX: L89.153 Pressure ulcer of sacral region, stage 3 (principal); G80.9 Cerebral palsy, unspecified; N31.9 Neuromuscular dysfunction of bladder, unspecified; N39.498 Other specified urinary incontinence; K21.9 Gastro-esophageal reflux disease without esophagitis; E03.9 Hypothyroidism, unspecified; Z99.3 Dependence on wheelchair ==

== ENCOUNTER 2020-04-29 01:12 | Day surgery (SDC) | payer OTHER | END 2020-04-29 23:45 | disposition home or self-care (01) | LOC: WOUND 01:12 | DX: L89.153 Pressure ulcer of sacral region, stage 3 (principal); G80.9 Cerebral palsy, unspecified; N31.9 Neuromuscular dysfunction of bladder, unspecified; R32 Unspecified urinary incontinence; K21.9 Gastro-esophageal reflux disease without esophagitis; E03.9 Hypothyroidism, unspecified | CPT/HCPCS: A9270 ==

== ENCOUNTER 2020-05-13 00:55 | Day surgery (SDC) | payer OTHER | END 2020-05-13 22:54 | disposition home or self-care (01) | LOC: WOUND 00:55 | DX: L89.153 Pressure ulcer of sacral region, stage 3 (principal); G80.9 Cerebral palsy, unspecified; N31.9 Neuromuscular dysfunction of bladder, unspecified; N39.498 Other specified urinary incontinence; E03.9 Hypothyroidism, unspecified | CPT/HCPCS: G0463 ==

== ENCOUNTER 2020-05-27 00:33 | Day surgery (SDC) | payer OTHER | END 2020-05-27 22:43 | disposition home or self-care (01) | LOC: WOUND 00:33 | DX: L89.152 Pressure ulcer of sacral region, stage 2 (principal); G80.9 Cerebral palsy, unspecified | CPT/HCPCS: A9270; G0463 ==

== ENCOUNTER 2020-06-17 00:56 | Day surgery (SDC) | payer OTHER | END 2020-06-17 22:54 | disposition home or self-care (01) | LOC: WOUND 00:56 | DX: L89.152 Pressure ulcer of sacral region, stage 2 (principal); G80.9 Cerebral palsy, unspecified | CPT/HCPCS: G0463 ==

== ENCOUNTER 2020-07-01 00:13 | Day surgery (SDC) | payer OTHER | END 2020-07-01 22:41 | disposition home or self-care (01) | LOC: WOUND 00:13 | DX: L89.152 Pressure ulcer of sacral region, stage 2 (principal); G80.9 Cerebral palsy, unspecified; K21.9 Gastro-esophageal reflux disease without esophagitis; E03.9 Hypothyroidism, unspecified | CPT/HCPCS: A9270 ==

== ENCOUNTER 2020-07-15 00:44 | Day surgery (SDC) | payer OTHER | END 2020-07-15 22:41 | disposition home or self-care (01) | LOC: WOUND 00:44 | DX: L89.153 Pressure ulcer of sacral region, stage 3 (principal); G80.9 Cerebral palsy, unspecified; K21.9 Gastro-esophageal reflux disease without esophagitis; E03.9 Hypothyroidism, unspecified | CPT/HCPCS: G0463 ==

== ENCOUNTER 2020-10-20 00:17 | Day surgery (SDC) | payer OTHER | END 2020-10-20 22:54 | disposition home or self-care (01) | LOC: WOUND 00:17 | DX: L89.153 Pressure ulcer of sacral region, stage 3 (principal); G80.9 Cerebral palsy, unspecified; N31.9 Neuromuscular dysfunction of bladder, unspecified; R32 Unspecified urinary incontinence; K21.9 Gastro-esophageal reflux disease without esophagitis; E03.9 Hypothyroidism, unspecified; Z99.3 Dependence on wheelchair | CPT/HCPCS: G0463 ==

== ENCOUNTER 2020-11-03 02:26 | Day surgery (SDC) | payer OTHER | END 2020-11-03 23:26 | disposition home or self-care (01) | LOC: WOUND 02:26 | DX: L89.152 Pressure ulcer of sacral region, stage 2 (principal); G80.9 Cerebral palsy, unspecified; N31.9 Neuromuscular dysfunction of bladder, unspecified; K21.9 Gastro-esophageal reflux disease without esophagitis; E03.9 Hypothyroidism, unspecified; R32 Unspecified urinary incontinence | CPT/HCPCS: G0463 ==

== ENCOUNTER 2020-11-10 03:00 | Day surgery (SDC) | payer OTHER | END 2020-11-10 23:09 | disposition home or self-care (01) | LOC: WOUND 03:00 | DX: L89.153 Pressure ulcer of sacral region, stage 3 (principal); L89.312 Pressure ulcer of right buttock, stage 2; G80.9 Cerebral palsy, unspecified | CPT/HCPCS: G0463 ==

== ENCOUNTER 2020-11-24 00:50 | Day surgery (SDC) | payer OTHER | END 2020-11-24 23:05 | disposition home or self-care (01) | LOC: WOUND 00:50 | DX: L89.153 Pressure ulcer of sacral region, stage 3 (principal); L89.312 Pressure ulcer of right buttock, stage 2; G80.9 Cerebral palsy, unspecified; N31.9 Neuromuscular dysfunction of bladder, unspecified | CPT/HCPCS: G0463 ==

== ENCOUNTER 2020-12-02 12:12 | Emergency (ER) | payer OTHER ==
[~2020-12-02] VITALS: Ht 167.6 cm; Wt 77.1 kg
== END 2020-12-02 19:04 | disposition home or self-care (01) ==
LOC: ER 12:12
DX: K94.23 Gastrostomy malfunction (principal); G80.9 Cerebral palsy, unspecified; Z79.899 Other long term (current) drug therapy
CPT/HCPCS: 43762; 74018; 99282-25

== ENCOUNTER 2020-12-08 05:09 | Day surgery (SDC) | payer OTHER | END 2020-12-08 23:29 | disposition home or self-care (01) | LOC: WOUND 05:09 | DX: L89.152 Pressure ulcer of sacral region, stage 2 (principal); G80.9 Cerebral palsy, unspecified | CPT/HCPCS: A9270; G0463 ==

== ENCOUNTER 2020-12-11 13:58 | Emergency (ER) | payer OTHER ==
[~2020-12-11] VITALS: Ht 160 cm; Wt 68.0 kg
[2020-12-11] MEDS ORDERED: CULTURELLE KID1 EA10 (15:00)
[2020-12-11] MEDS ORDERED: Prozac20 MG PO (15:01)
[2020-12-11] MEDS ORDERED: HYDROCODONE AC (15:02)
== END 2020-12-11 16:26 | disposition home or self-care (01) ==
LOC: ER 13:58
DX: L89.152 Pressure ulcer of sacral region, stage 2 (principal); Z79.899 Other long term (current) drug therapy
CPT/HCPCS: 99283

== ENCOUNTER 2020-12-15 05:50 | Day surgery (SDC) | payer OTHER ==
[~2020-12-15 05:50] MED LIST changes: +CULTURELLE KID1 EA10; +HYDROCODONE AC; +Prozac20 MG PO
== END 2020-12-15 23:00 | disposition home or self-care (01) ==
LOC: WOUND 05:50
DX: L89.152 Pressure ulcer of sacral region, stage 2 (principal); G80.9 Cerebral palsy, unspecified; K21.9 Gastro-esophageal reflux disease without esophagitis; E03.9 Hypothyroidism, unspecified
CPT/HCPCS: G0463

== ENCOUNTER 2021-01-07 01:34 | Day surgery (SDC) | payer OTHER | END 2021-01-07 23:01 | disposition home or self-care (01) | LOC: WOUND 01:34 | DX: L89.154 Pressure ulcer of sacral region, stage 4 (principal); L89.312 Pressure ulcer of right buttock, stage 2; G80.9 Cerebral palsy, unspecified ==

== ENCOUNTER 2021-01-14 02:39 | Day surgery (SDC) | payer OTHER | END 2021-01-14 12:00 | disposition home or self-care (01) | LOC: WOUND 02:39 | DX: L89.152 Pressure ulcer of sacral region, stage 2 (principal); L89.312 Pressure ulcer of right buttock, stage 2; G80.9 Cerebral palsy, unspecified | CPT/HCPCS: A9270; G0463 ==

== ENCOUNTER 2021-01-21 04:59 | Day surgery (SDC) | payer OTHER | END 2021-01-21 22:58 | disposition home or self-care (01) | LOC: WOUND 04:59 | PROC: 0JB70ZZ Excision of Back Subcutaneous Tissue and Fascia, Open Approach (ICD-10-PCS; principal; 2021-01-21) | DX: L89.312 Pressure ulcer of right buttock, stage 2 (principal); L89.154 Pressure ulcer of sacral region, stage 4; G80.9 Cerebral palsy, unspecified; E03.9 Hypothyroidism, unspecified; K21.9 Gastro-esophageal reflux disease without esophagitis | CPT/HCPCS: A9270 ==

== ENCOUNTER 2021-01-30 05:25 | Day surgery (SDC) | payer OTHER | END 2021-01-30 22:55 | disposition home or self-care (01) | LOC: WOUND 05:25 | DX: L89.154 Pressure ulcer of sacral region, stage 4 (principal); L89.312 Pressure ulcer of right buttock, stage 2; G80.9 Cerebral palsy, unspecified; K21.9 Gastro-esophageal reflux disease without esophagitis; E03.9 Hypothyroidism, unspecified | CPT/HCPCS: A9270 ==

== ENCOUNTER 2021-02-11 02:09 | Day surgery (SDC) | payer OTHER | END 2021-02-11 23:09 | disposition home or self-care (01) | LOC: WOUND 02:09 | DX: L89.154 Pressure ulcer of sacral region, stage 4 (principal); L89.312 Pressure ulcer of right buttock, stage 2; G80.9 Cerebral palsy, unspecified | CPT/HCPCS: G0463 ==

== ENCOUNTER 2021-02-25 02:52 | Day surgery (SDC) | payer OTHER | END 2021-02-25 23:06 | disposition home or self-care (01) | LOC: WOUND 02:52 | PROC: 0JB70ZZ Excision of Back Subcutaneous Tissue and Fascia, Open Approach (ICD-10-PCS; principal; 2021-02-25) | DX: L89.154 Pressure ulcer of sacral region, stage 4 (principal); L89.312 Pressure ulcer of right buttock, stage 2; K21.9 Gastro-esophageal reflux disease without esophagitis; G80.9 Cerebral palsy, unspecified ==

== ENCOUNTER 2021-03-18 05:17 | Day surgery (SDC) | payer OTHER | END 2021-03-18 23:41 | disposition home or self-care (01) | LOC: WOUND 05:17 | DX: L89.154 Pressure ulcer of sacral region, stage 4 (principal); L89.313 Pressure ulcer of right buttock, stage 3; G80.9 Cerebral palsy, unspecified; K21.9 Gastro-esophageal reflux disease without esophagitis; E03.9 Hypothyroidism, unspecified | CPT/HCPCS: A9270; G0463 ==

== ENCOUNTER 2021-03-25 01:49 | Day surgery (SDC) | payer OTHER | END 2021-03-25 22:37 | disposition home or self-care (01) | LOC: WOUND 01:49 | DX: L89.154 Pressure ulcer of sacral region, stage 4 (principal); L89.314 Pressure ulcer of right buttock, stage 4; G80.9 Cerebral palsy, unspecified; K21.9 Gastro-esophageal reflux disease without esophagitis; E03.9 Hypothyroidism, unspecified; Z99.3 Dependence on wheelchair | CPT/HCPCS: G0463 ==

== ENCOUNTER 2021-04-01 00:45 | Day surgery (SDC) | payer OTHER | END 2021-04-01 22:49 | disposition home or self-care (01) | LOC: WOUND 00:45 | DX: L89.154 Pressure ulcer of sacral region, stage 4 (principal); L89.314 Pressure ulcer of right buttock, stage 4; S31.010A Laceration without foreign body of lower back and pelvis without penetration into retroperitoneum, initial encounter; X58.XXXA Exposure to other specified factors, initial encounter; G80.9 Cerebral palsy, unspecified | CPT/HCPCS: G0463 ==

== ENCOUNTER 2021-04-08 01:24 | Day surgery (SDC) | payer OTHER | END 2021-04-08 23:04 | disposition home or self-care (01) | LOC: WOUND 01:24 | DX: L89.154 Pressure ulcer of sacral region, stage 4 (principal); L89.314 Pressure ulcer of right buttock, stage 4; G80.9 Cerebral palsy, unspecified; K21.9 Gastro-esophageal reflux disease without esophagitis; R32 Unspecified urinary incontinence | CPT/HCPCS: G0463 ==

== ENCOUNTER 2021-04-15 08:00 | Day surgery (SDC) | payer OTHER ==
[~2021-04-15 08:00] MED LIST changes: -HYDROCODONE AC
== END 2021-04-15 23:59 | disposition home or self-care (01) ==
LOC: WOUND
DX: L89.154 Pressure ulcer of sacral region, stage 4 (principal); L89.314 Pressure ulcer of right buttock, stage 4; G80.9 Cerebral palsy, unspecified
CPT/HCPCS: A9270; G0463

== ENCOUNTER 2021-04-17 04:19 | Inpatient (IN) | payer OTHER ==
[~2021-04-17] VITALS: Ht 177.8 cm; Wt 57.2 kg
[2021-04-17 05:26] LABS: BASOPHILS ABSOLUTE AUTO 0.07 K/mm3 (0.00-0.23); BASOPHILS PERCENT AUTO 1 % (0-2); EOSINOPHILS ABSOLUTE AUTO 0.13 K/mm3 (0.00-0.68); EOSINOPHILS PERCENT AUTO 2 % (0-6); Hematocrit 43.4 % (37.0-53.0); Hemoglobin 13.8 g/dL (13.5-17.5); IMMATURE GRAN ABSOLUTE AUTO 0.05 K/mm3 (0.00-0.10); IMMATURE GRAN PERCENT AUTO 1 % (0-1); LYMPHOCYTES ABSOLUTE AUTO 0.72 K/mm3 (0.84-5.20); LYMPHOCYTES PERCENT AUTO 10 % (21-46); MONOCYTES ABSOLUTE AUTO 0.81 K/mm3 (0.16-1.47); MONOCYTES PERCENT AUTO 11 % (4-13); Mean Corpuscular HGB 28.4 pg (26.0-34.0); Mean Corpuscular HGB Conc 31.8 g/dL (31.5-36.5); Mean Corpuscular Volume 89 fL (80-100); Mean Platelet Volume 9.8 fL (9.1-12.4); NEUTROPHILS ABSOLUTE AUTO 5.78 K/mm3 (1.96-9.15); NEUTROPHILS PERCENT AUTO 77 % (41-73); Platelet Count 334 K/mm3 (150-400); RDW Coefficient Variation 14.8 % (11.7-14.2); RDW Standard Deviation 48.9 fL (35.1-46.3); Red Blood Cell Count 4.86 M/mm3 (4.30-5.90); White Blood Cell Count 7.56 K/mm3 (4.00-11.30)
[2021-04-17 05:45] LABS: Alanine Aminotransfer (ALT/SGP 22 U/L (12-78); Albumin, Blood 2.9 g/dL (3.4-5.0); Albumin/Globulin Ratio 0.5 (0.8-1.8); Alk Phos 101 U/L (50-136); Anion Gap 7 mmol/L (6-16); Aspartate Aminotrans (AST/SGOT 10 U/L (12-37); Bilirubin, Total 0.3 mg/dL (0.1-1.0); Blood Urea Nitrogen 17 mg/dL (8-24); Bun/Creatinine Ratio 32.1 (12.0-20.0); CO2, Blood 23 mmol/L (21-32); Calcium, Blood 8.7 mg/dL (8.5-10.1); Chloride, Blood 107 mmol/L (98-108); Creatinine, Blood 0.53 mg/dL (0.60-1.20); Globulin, Blood 5.5 g/dL (2.2-4.0); Glomerular Filtration Rate >60 (60-); Glucose, Blood 124 mg/dL (70-99); Potassium, Blood 4.1 mmol/L (3.5-5.5); Sodium, Blood 137 mmol/L (136-145); Total Protein, Blood 8.4 g/dL (6.4-8.2)
[2021-04-17 06:19] LABS: Source, Urine Foley catheter
[2021-04-17 06:22] LABS: Appearance, Urine Clear (Clear); Bilirubin, Urine Neg (Neg); Blood, Urine 2+ (Neg); Color, Urine Yellow (P-Yellow); Glucose Qualitative, Urine Neg (Neg); Ketones, Urine Neg (Neg); Leukocyte Esterase, Urine 3+ (Neg); Nitrite, Urine Neg (Neg); Protein, Urine 1+ (Neg); Specific Gravity, Urine 1.015 (1.003-1.022); Urobilinogen, Urine NORM (Normal)
[2021-04-17 06:29] LABS: White Blood Cells, Urine 25-50 /hpf (0-5)
[2021-04-17 06:30] LABS: Bacteria Many /hpf; Squamous Epithelial Cells Rare /hpf (Few)
[2021-04-17] MEDS ORDERED: SYNTHROID50 MC1 PO (13:24)
--- NOTE | 2021-04-17 17:59 | NUR ---
SHIFT SUMMARY; PATIENT ADMITTED TO MEDICAL FLOOR TODAY FROM ER. HE IS A RESIDENT OF [facility]. PATIENT IS NON VERBAL BUT ABLE TO SHAKE HEAD FOR YES OR NO. HIS SISTER LIVES IN [place] AND IS ROOM WITH PATIENT FOR MOST OF DAY AND SHE IS HIS DESIGNATED POWER OF PARK AIDE. TUBE FEEDS ARE STARTED AND PATIENT IS A BOLUS FEED. PATIENT DID NOT WANT TO RECEIVE THE JEVITY 1.5 THAT WAS ORDERED BY DIETARY HIS SISTER SAID IT MAKES HIM VERY ILL. CHANGED FEED TO PLANT BASED FORMULA AND PAITENT TOLERATES OK FOR FIRST FEED. WILL PASS ON TO NOC SHIFT TO WATCH CLOSELY FOR ANY DIFFCULTY AND TO SIT HIM UP INCASE HE DOES GET SICK FROM THIS FORM OF TUBE FEED ALSO. WOUND VAC IS PLACED ON PATIENTS COCCYX PER ORDER. PATIENT TOLERATED WELL. HIS UROSTOMTY BAG WAS CHANGED AND NEW APPLIANCE CHANGED OUT IT WAS LEAKING AT SKIN UNDER APPLIANCE. HIS CBG IS WNL IN THE 12O'S. WILL REMAIN AVAILABLE FOR THIS PATIENT FOR ANY WANTS OR NEEDS UNTIL HAND OFF AT SHIFT CHANGE.
--- NOTE | 2021-04-18 03:13 | NUR ---
SHIFT SUMMARY PATIENT HAD NO ACUTE CHANGES OBSERVED. AXOX 1-2 WITH SISTER IN ROOM AT SHIFT CHANGE. NPO. FROM [facility]. BEDBOUND WITH HAND/FEET CONTRACTURES. NON-VERBAL WITH HEAD NODS FOR YES/NO QUESTIONS. POWERGLIDE NAZ INTACT. IV ABXS INFUSED. UROSTOMY AND PEG TUBE INTACT. PEG TUBE FEEDINGS AND FLUSH PER ORDERS. RECEPTIONIST CLERK REPORTS NSR @ 80. WOUND VAC INTACT. NO S/SX OF PAIN, SOB, AND N/V. TRACH STOMA. VSS/AFEBRILE. CALL LIGHT PAD IN REACH. BED IN LOWEST POSITION. WILL CONTINUE TO MONITOR UNTIL DAY SHIFT NURSE ASSUMES CARE.
[2021-04-18 06:02] LABS: BASOPHILS ABSOLUTE AUTO 0.04 K/mm3 (0.00-0.23); BASOPHILS PERCENT AUTO 1 % (0-2); EOSINOPHILS ABSOLUTE AUTO 0.17 K/mm3 (0.00-0.68); EOSINOPHILS PERCENT AUTO 2 % (0-6); Hematocrit 36.4 % (37.0-53.0); Hemoglobin 11.4 g/dL (13.5-17.5); IMMATURE GRAN ABSOLUTE AUTO 0.03 K/mm3 (0.00-0.10); IMMATURE GRAN PERCENT AUTO 0 % (0-1); LYMPHOCYTES ABSOLUTE AUTO 1.27 K/mm3 (0.84-5.20); LYMPHOCYTES PERCENT AUTO 18 % (21-46); MONOCYTES ABSOLUTE AUTO 0.88 K/mm3 (0.16-1.47); MONOCYTES PERCENT AUTO 13 % (4-13); Mean Corpuscular HGB 28.7 pg (26.0-34.0); Mean Corpuscular HGB Conc 31.3 g/dL (31.5-36.5); Mean Corpuscular Volume 92 fL (80-100); Mean Platelet Volume 10.2 fL (9.1-12.4); NEUTROPHILS ABSOLUTE AUTO 4.59 K/mm3 (1.96-9.15); NEUTROPHILS PERCENT AUTO 66 % (41-73); Platelet Count 289 K/mm3 (150-400); RDW Coefficient Variation 15.2 % (11.7-14.2); RDW Standard Deviation 51.6 fL (35.1-46.3); Red Blood Cell Count 3.97 M/mm3 (4.30-5.90); White Blood Cell Count 6.98 K/mm3 (4.00-11.30)
[2021-04-18 06:19] LABS: Alanine Aminotransfer (ALT/SGP 20 U/L (12-78); Albumin, Blood 2.5 g/dL (3.4-5.0); Albumin/Globulin Ratio 0.5 (0.8-1.8); Alk Phos 75 U/L (50-136); Anion Gap 5 mmol/L (6-16); Aspartate Aminotrans (AST/SGOT 20 U/L (12-37); Bilirubin, Total 0.4 mg/dL (0.1-1.0); Blood Urea Nitrogen 17 mg/dL (8-24); Bun/Creatinine Ratio 29.7 (12.0-20.0); CO2, Blood 24 mmol/L (21-32); Calcium, Blood 8.3 mg/dL (8.5-10.1); Chloride, Blood 111 mmol/L (98-108); Creatinine, Blood 0.57 mg/dL (0.60-1.20); Globulin, Blood 4.6 g/dL (2.2-4.0); Glomerular Filtration Rate >60 (60-); Glucose, Blood 98 mg/dL (70-99); Potassium, Blood 3.8 mmol/L (3.5-5.5); Sodium, Blood 140 mmol/L (136-145); Total Protein, Blood 7.1 g/dL (6.4-8.2)
--- NOTE | 2021-04-18 09:30 | NUR ---
TUBE FEEDING COMPLETED, 237 TUBE FEED MIXED WITH 450 WATER, PT APPEARED TO TOLERATE WELL. WILL MONITOR
[2021-04-18 15:45] LABS: Vancomycin, Trough 25.1 ug/mL (5.0-10.0)
--- NOTE | 2021-04-18 17:37 | NUR ---
PT IS A/O X 2, ABLE TO ANSWER YES/NO QUESTIONS AND MAKE HIS NEEDS KNOWN. SISTER AT BEDSIDE T/O THE SHIFT. HE HAS HAD A PRODUCTIVE COUGH TODAY, SPUTUM THRU TRACH STOMA, REMAINS NPO WITH BOLUS TUBE FEEDS TID T/O PEG TUBE. UROSTOMY REMAINS PATENT AND DRAINING. WOUND VAC TO COCCYX. IV VANO CHANGED FROM TID TO BID, POSSIBLE DISCHARGE TOMORROW PER DR FIORE IF [facility] WILL TAKE BACK ON TUESDAY. TELE DISCONTINUED AND BOX RETURNED TO PCU. NO ACUTE CHANGES NOTED THIS SHIFT, WILL CONTINUE TO MONITOR AND REPORT TO ONCOMING RN.
--- NOTE | 2021-04-19 03:59 | NUR ---
SHIFT SUMMARY PATIENT HAD DIARRHEA T/O SHIFT. PRODUCTIVE COUGH WITH SPUTUM THROUGH TRACH STOMA. SUCTION SETUP IN ROOM AND RT IN TO ASSESS REPORTING NO INFECTION AND AIRWAY OPEN. WOUND VAC/UROSTOMY INTACT. FOREMAN PATENT AND DRAINING TO GRAVITY. PEG TUBE BOLUS FEEDINGS PER ORDER. NPO. POWERGLIDE NAZ INTACT. IV ABX INFUSED. VSS-FEBRILE 101.5 TEMP AND TYLENOL 650 MG GIVEN PER EMAR. TEMP REDUCED AND ELEVATED AGAIN WITH TYLENOL GIVEN A SECOND TIME. SISTER PRESENT AT START OF SHIFT. TOUCH CALL PAD IN REACH. BED IN LOWEST POSITION. WILL CONTINUE TO MONITOR UNTIL DAY SHIFT NURSE ASSUMES CARE.
--- NOTE | 2021-04-19 15:22 | NUR ---
SHIFT SUMMARY: NO ACUTE EVENTS. ALERT AND PLEASANT, NO COMPLAINTS. HAD DIARRHEA O/N LAST NIGHT SO BOWEL MEDS HELD. ON ROOM AIR, TRACEOSTOMY STOMA CLEAN, BUT HAS OCC PROD COUGH WITH PALE YELLOW SPUTUM. TOLERATING BOLUS TF. WAITING FOR HOME WOUND VAC PRIOR TO D/C BACK TO [facility], LIKELY TOMORROW.
[2021-04-19 15:41] LABS: BASOPHILS ABSOLUTE AUTO 0.03 K/mm3 (0.00-0.23); BASOPHILS PERCENT AUTO 1 % (0-2); EOSINOPHILS ABSOLUTE AUTO 0.18 K/mm3 (0.00-0.68); EOSINOPHILS PERCENT AUTO 3 % (0-6); Hematocrit 37.7 % (37.0-53.0); Hemoglobin 11.8 g/dL (13.5-17.5); IMMATURE GRAN ABSOLUTE AUTO 0.01 K/mm3 (0.00-0.10); IMMATURE GRAN PERCENT AUTO 0 % (0-1); LYMPHOCYTES PERCENT AUTO 17 % (21-46); MONOCYTES PERCENT AUTO 13 % (4-13); Mean Corpuscular HGB 28.5 pg (26.0-34.0); Mean Corpuscular HGB Conc 31.3 g/dL (31.5-36.5); Mean Corpuscular Volume 91 fL (80-100); Mean Platelet Volume 9.8 fL (9.1-12.4); NEUTROPHILS ABSOLUTE AUTO 3.61 K/mm3 (1.96-9.15); NEUTROPHILS PERCENT AUTO 66 % (41-73); Platelet Count 266 K/mm3 (150-400); RDW Coefficient Variation 15.2 % (11.7-14.2); RDW Standard Deviation 50.8 fL (35.1-46.3); Red Blood Cell Count 4.14 M/mm3 (4.30-5.90); White Blood Cell Count 5.43 K/mm3 (4.00-11.30)
--- NOTE | 2021-04-19 15:45 | NUR ---
Assumed care of pt, caregiver in room with him, he is pleasant, attends changed, doing ok no needs at this time. call light in reach.
--- NOTE | 2021-04-19 18:17 | NUR ---
pt doing ok, recieved his bolus feed, and abx, no acute changes, call light in reach.
--- NOTE | 2021-04-20 03:40 | NUR ---
SHIFT SUMMARY PATIENT HAD NO ACUTE CHANGES OBSERVED. AXOX 1-2 NON-VERBAL ANSWERING YES/NO QUESTIONS WITH HEAD NODS. WOUND VAC IN PLACE. FOREMAN PATENT AND DRAINING TO GRAVITY. FEEDING THROUGH PEG TUBE PER ORDERS. TRACH STOMA CLEAN WITH PRODUCTIVE COUGH AND YELLOW SPUTUM AT TIMES. VSS/AFEBRILE. DENIES PAIN, SOB, AND N/V. POWERGLIDE NAZ AND PIV INTACT. IV ABXS INFUSED. TOUCH CALL PAD IN REACH. ABLE TO MAKE MOST NEEDS KNOW. BED IN LOWEST POSITION. WILL CONTINUE TO MONITOR UNTIL DAY SHIFT NURSE ASSUMES CARE.
[2021-04-20 07:57] LABS: BASOPHILS ABSOLUTE AUTO 0.02 K/mm3 (0.00-0.23); BASOPHILS PERCENT AUTO 0 % (0-2); EOSINOPHILS ABSOLUTE AUTO 0.12 K/mm3 (0.00-0.68); EOSINOPHILS PERCENT AUTO 3 % (0-6); Hematocrit 36.1 % (37.0-53.0); Hemoglobin 11.3 g/dL (13.5-17.5); IMMATURE GRAN ABSOLUTE AUTO 0.02 K/mm3 (0.00-0.10); IMMATURE GRAN PERCENT AUTO 0 % (0-1); LYMPHOCYTES ABSOLUTE AUTO 0.87 K/mm3 (0.84-5.20); LYMPHOCYTES PERCENT AUTO 18 % (21-46); MONOCYTES ABSOLUTE AUTO 0.47 K/mm3 (0.16-1.47); MONOCYTES PERCENT AUTO 10 % (4-13); Mean Corpuscular HGB 28.6 pg (26.0-34.0); Mean Corpuscular HGB Conc 31.3 g/dL (31.5-36.5); Mean Corpuscular Volume 91 fL (80-100); Mean Platelet Volume 9.8 fL (9.1-12.4); NEUTROPHILS ABSOLUTE AUTO 3.23 K/mm3 (1.96-9.15); NEUTROPHILS PERCENT AUTO 68 % (41-73); Platelet Count 256 K/mm3 (150-400); RDW Coefficient Variation 15.3 % (11.7-14.2); RDW Standard Deviation 50.9 fL (35.1-46.3); Red Blood Cell Count 3.95 M/mm3 (4.30-5.90); White Blood Cell Count 4.73 K/mm3 (4.00-11.30)
[2021-04-20 08:11] LABS: Albumin, Blood 2.3 g/dL (3.4-5.0); Anion Gap 7 mmol/L (6-16); Blood Urea Nitrogen 13 mg/dL (8-24); Bun/Creatinine Ratio 20.3 (12.0-20.0); CO2, Blood 23 mmol/L (21-32); Chloride, Blood 110 mmol/L (98-108); Creatinine, Blood 0.64 mg/dL (0.60-1.20); Glomerular Filtration Rate >60 (60-); Glucose, Blood 88 mg/dL (70-99); Phosphorus, Blood 3.2 mg/dL (2.5-4.9); Potassium, Blood 3.7 mmol/L (3.5-5.5); Sodium, Blood 140 mmol/L (136-145)
--- NOTE | 2021-04-20 11:16 | NUR ---
Received referral from nurse acute care surgeon (Bj Lay) on 04/20/2021. Patient is to discharge 04/20/2021 with orders for home health and elected [facility]. Contacted patient's intermodal customer service care facility- [facility] and spoke with carpet finishing supervisor (Angelique) to further discuss the above. Patient's facility is agreeable to the above. Discussed homebound status definition with patient's facility. Patient's facility verbalized understanding. Discussed what home health is vs what it is not (in home caregivers/housekeeping). Patient's facility verbalized understanding. Discussed the next steps in the process of an initial assessment to determine frequency of visits. Again patient's facility verbalized understanding. Offered a chance for patient's facility to ask questions regarding the above of which there were none. At this time patient has no discharge orders entered. Will continue to monitor and follow for discharge. Paula Denson Referral Liaison
[2021-04-20] MEDS ORDERED: DOXY100 PT (11:47)
[2021-04-20] MEDS ORDERED: LEVO750 PT (11:47)
[2021-04-20] MEDS ORDERED: JUVEN PACKET1 EAC3 PT (11:48)
[2021-04-20 12:09] LABS: Vancomycin, Trough 15.8 ug/mL (5.0-10.0)
--- NOTE | 2021-04-20 17:12 | NUR ---
Patient now has discharge orders entered. Gathered all supporting documentation for referral (face sheet, face to face, med list, H&P, and most recent PT assessment) and sent to [facility] for review. No further interventions required. Paula Denson Referral Liaison
--- NOTE | 2021-04-20 17:18 | NUR ---
PT DISCHARGED THE PT WAS DISCHARGED BACK TO [facility]. THE PTS WOUND VAC WAS REDRESSED BY THE [facility] BILL OPERATORAB DILLON. THE PT WAS FEED JUST PRIOR TO DC. THE PT APPEARED TO BE BREATHING EASILY ON RA AT THE TIME OF DC. THE PT S PRESCRIPTIONS WERE FAXED TO [facility]. THE PT WAS TRANSFERED VIA GURNEY ACCOMPANIED BY [facility]
== END 2021-04-20 15:07 | disposition home health service (06) | DRG 871 ==
LOC: ER 04:19 → MEDS 05:44 → ENPENDDIS 04-20 11:24 → MEDS 04-20 15:07
PROVIDERS: Internal Medicine; Student in an Organized Health Care Education/Training Program; ADMIT Internal Medicine
DX: A41.9 Sepsis, unspecified organism (principal); L89.154 Pressure ulcer of sacral region, stage 4; E46 Unspecified protein-calorie malnutrition; M46.28 Osteomyelitis of vertebra, sacral and sacrococcygeal region; E03.9 Hypothyroidism, unspecified; G80.9 Cerebral palsy, unspecified; F32.A Depression, unspecified; K21.9 Gastro-esophageal reflux disease without esophagitis; M41.9 Scoliosis, unspecified; R13.10 Dysphagia, unspecified; I10 Essential (primary) hypertension; Z74.01 Bed confinement status; Z68.20 Body mass index [BMI] 20.0-20.9, adult; Z87.442 Personal history of urinary calculi; Z87.01 Personal history of pneumonia (recurrent); Z93.6 Other artificial openings of urinary tract status; Z93.0 Tracheostomy status; Z79.899 Other long term (current) drug therapy; Z93.1 Gastrostomy status
CPT/HCPCS: 36415; 71045; 74177; 80053; 80069; 80202; 81001; 82947; 83605; 83880; 84145; 85025; 87040; 87086; 93005; 93010; 96365; 96367; 99284-25; A9270; C1751; J1650; J2543; J3370; J7030; J7050; Q9967

== ENCOUNTER 2021-05-06 01:03 | Day surgery (SDC) | payer OTHER ==
[~2021-05-06 01:03] MED LIST changes: +DOXY100 PT; +LEVO750 PT; +SYNTHROID50 MC1 PO
== END 2021-05-06 22:46 | disposition home or self-care (01) ==
LOC: WOUND 01:03
DX: L89.154 Pressure ulcer of sacral region, stage 4 (principal); L89.314 Pressure ulcer of right buttock, stage 4; G80.9 Cerebral palsy, unspecified
CPT/HCPCS: A9270; G0463

== ENCOUNTER 2021-05-13 01:57 | Day surgery (SDC) | payer OTHER | END 2021-05-13 23:18 | disposition home or self-care (01) | LOC: WOUND 01:57 | DX: L89.154 Pressure ulcer of sacral region, stage 4 (principal); L89.314 Pressure ulcer of right buttock, stage 4; G80.9 Cerebral palsy, unspecified; K21.9 Gastro-esophageal reflux disease without esophagitis; E03.9 Hypothyroidism, unspecified ==

== ENCOUNTER 2021-05-27 01:12 | Day surgery (SDC) | payer OTHER | END 2021-05-27 23:11 | disposition home or self-care (01) | LOC: WOUND 01:12 | DX: L89.154 Pressure ulcer of sacral region, stage 4 (principal); L89.314 Pressure ulcer of right buttock, stage 4; G80.9 Cerebral palsy, unspecified; K21.9 Gastro-esophageal reflux disease without esophagitis; E03.9 Hypothyroidism, unspecified; R15.9 Full incontinence of feces | CPT/HCPCS: A9270 ==

== ENCOUNTER 2021-05-29 11:37 | Emergency (ER) | payer OTHER ==
[~2021-05-29] VITALS: Ht 152.4 cm; Wt 56.1 kg
[2021-05-29 13:13] LABS: Influenza A, PCR NEGATIVE (NEGATIVE); Influenza B, PCR NEGATIVE (NEGATIVE); Resp Syncytial Virus, PCR NEGATIVE (NEGATIVE); SARS-Cov-2 (COVID-19) PCR, MMC NEGATIVE (NEGATIVE)
== END 2021-05-29 15:15 | disposition home or self-care (01) ==
LOC: ER 11:37
PROVIDERS: Student in an Organized Health Care Education/Training Program
DX: K94.23 Gastrostomy malfunction (principal); Z20.822 Contact with and (suspected) exposure to COVID-19; Z79.899 Other long term (current) drug therapy
CPT/HCPCS: 0241U; 43762; 49465; 99283-25; Q9963

== ENCOUNTER 2021-06-10 00:22 | Day surgery (SDC) | payer OTHER | END 2021-06-10 22:54 | disposition home or self-care (01) | LOC: WOUND 00:22 | DX: L89.154 Pressure ulcer of sacral region, stage 4 (principal); L89.314 Pressure ulcer of right buttock, stage 4; G80.9 Cerebral palsy, unspecified; R32 Unspecified urinary incontinence; K21.9 Gastro-esophageal reflux disease without esophagitis; E03.9 Hypothyroidism, unspecified ==

== ENCOUNTER 2021-06-24 02:13 | Day surgery (SDC) | payer OTHER | END 2021-06-24 23:07 | disposition home or self-care (01) | LOC: WOUND 02:13 | DX: L89.154 Pressure ulcer of sacral region, stage 4 (principal); L89.314 Pressure ulcer of right buttock, stage 4; G80.9 Cerebral palsy, unspecified ==

== ENCOUNTER 2021-07-15 00:33 | Day surgery (SDC) | payer OTHER | END 2021-07-15 22:48 | disposition home or self-care (01) | LOC: WOUND 00:33 | DX: L89.154 Pressure ulcer of sacral region, stage 4 (principal); L89.314 Pressure ulcer of right buttock, stage 4; G80.9 Cerebral palsy, unspecified; Z99.3 Dependence on wheelchair; K21.9 Gastro-esophageal reflux disease without esophagitis; E03.9 Hypothyroidism, unspecified ==

== ENCOUNTER 2021-08-04 08:27 | Day surgery (SDC) | payer OTHER | END 2021-08-04 22:48 | disposition home or self-care (01) | LOC: WOUND 08:27 | DX: L89.154 Pressure ulcer of sacral region, stage 4 (principal); L89.314 Pressure ulcer of right buttock, stage 4; G80.9 Cerebral palsy, unspecified; R77.0 Abnormality of albumin | CPT/HCPCS: G0463 ==

== ENCOUNTER 2021-08-17 09:50 | Emergency (ER) | payer OTHER ==
[~2021-08-17] VITALS: Ht 165.1 cm; Wt 55.8 kg
[2021-08-17 10:39] LABS: BASOPHILS ABSOLUTE AUTO 0.04 K/mm3 (0.00-0.23); BASOPHILS PERCENT AUTO 0 % (0-2); EOSINOPHILS ABSOLUTE AUTO 0.22 K/mm3 (0.00-0.68); EOSINOPHILS PERCENT AUTO 2 % (0-6); Hematocrit 45.3 % (37.0-53.0); Hemoglobin 14.8 g/dL (13.5-17.5); IMMATURE GRAN ABSOLUTE AUTO 0.03 K/mm3 (0.00-0.10); IMMATURE GRAN PERCENT AUTO 0 % (0-1); LYMPHOCYTES ABSOLUTE AUTO 1.53 K/mm3 (0.84-5.20); LYMPHOCYTES PERCENT AUTO 15 % (21-46); MONOCYTES ABSOLUTE AUTO 1.11 K/mm3 (0.16-1.47); MONOCYTES PERCENT AUTO 11 % (4-13); Mean Corpuscular HGB 28.9 pg (26.0-34.0); Mean Corpuscular HGB Conc 32.7 g/dL (31.5-36.5); Mean Corpuscular Volume 89 fL (80-100); Mean Platelet Volume 9.9 fL (9.1-12.4); NEUTROPHILS ABSOLUTE AUTO 7.43 K/mm3 (1.96-9.15); NEUTROPHILS PERCENT AUTO 72 % (41-73); Platelet Count 329 K/mm3 (150-400); RDW Coefficient Variation 15.5 % (11.7-14.2); RDW Standard Deviation 49.7 fL (35.1-46.3); Red Blood Cell Count 5.12 M/mm3 (4.30-5.90); White Blood Cell Count 10.36 K/mm3 (4.00-11.30)
[2021-08-17 10:55] LABS: Albumin/Globulin Ratio 0.6 (0.8-1.8); Bilirubin, Total 0.8 mg/dL (0.1-1.0); Bun/Creatinine Ratio 67.2 (12.0-20.0); Creatinine, Blood 0.46 mg/dL (0.60-1.20); Potassium, Blood 4.1 mmol/L (3.5-5.5)
[2021-08-17 11:19] LABS: Source, Urine Urostomy Bag
[2021-08-17 11:24] LABS: Bilirubin, Urine Neg (Neg); Blood, Urine 5+ (Neg); Glucose Qualitative, Urine Neg (Neg); Ketones, Urine Neg (Neg); Leukocyte Esterase, Urine 3+ (Neg); Nitrite, Urine Neg (Neg); Protein, Urine 3+ (Neg); Urobilinogen, Urine NORM (Normal)
[2021-08-17 12:11] LABS: Appearance, Urine Hazy (Clear); Color, Urine Yellow (P-Yellow)
[2021-08-17 12:16] LABS: Triple Phosphate Crystals Many /hpf
[2021-08-17 12:18] LABS: Bacteria Many /hpf; Squamous Epithelial Cells Not Seen /hpf (Few)
[2021-08-17] MEDS ORDERED: Cephalexin250 MG/5 M PO ×2 (12:35→13:23)
== END 2021-08-17 13:25 | disposition home or self-care (01) ==
LOC: ER 09:50
PROVIDERS: Emergency Medicine
DX: R10.9 Unspecified abdominal pain (principal); N39.0 Urinary tract infection, site not specified; Z79.899 Other long term (current) drug therapy
CPT/HCPCS: 36415; 74177; 80053; 81001; 83690; 85025; A9270; Q9967

== ENCOUNTER 2021-08-19 02:06 | Day surgery (SDC) | payer OTHER ==
[~2021-08-19 02:06] MED LIST changes: +Cephalexin250 MG/5 M PO
== END 2021-08-24 23:36 | disposition home or self-care (01) ==
LOC: WOUND 02:06
DX: L89.314 Pressure ulcer of right buttock, stage 4 (principal); L89.154 Pressure ulcer of sacral region, stage 4; G80.9 Cerebral palsy, unspecified; R77.0 Abnormality of albumin; K21.9 Gastro-esophageal reflux disease without esophagitis; E03.9 Hypothyroidism, unspecified
CPT/HCPCS: G0463

== ENCOUNTER 2021-08-26 04:20 | Day surgery (SDC) | payer OTHER | END 2021-08-26 23:09 | disposition home or self-care (01) | LOC: WOUND 04:20 | DX: L89.154 Pressure ulcer of sacral region, stage 4 (principal); L89.314 Pressure ulcer of right buttock, stage 4; L89.213 Pressure ulcer of right hip, stage 3; G80.9 Cerebral palsy, unspecified; R77.0 Abnormality of albumin; K21.9 Gastro-esophageal reflux disease without esophagitis; E03.9 Hypothyroidism, unspecified | CPT/HCPCS: G0463 ==

== ENCOUNTER 2021-09-09 01:49 | Day surgery (SDC) | payer OTHER | END 2021-09-09 22:45 | disposition home or self-care (01) | LOC: WOUND 01:49 | DX: L89.154 Pressure ulcer of sacral region, stage 4 (principal); L89.213 Pressure ulcer of right hip, stage 3; G80.9 Cerebral palsy, unspecified; K21.9 Gastro-esophageal reflux disease without esophagitis; E03.9 Hypothyroidism, unspecified; R77.0 Abnormality of albumin | CPT/HCPCS: G0463 ==

== ENCOUNTER 2021-09-23 03:48 | Day surgery (SDC) | payer OTHER | END 2021-09-23 23:46 | LOC: WOUND 03:48 | DX: L89.154 Pressure ulcer of sacral region, stage 4 (principal); L89.213 Pressure ulcer of right hip, stage 3; G80.9 Cerebral palsy, unspecified; R77.0 Abnormality of albumin; K21.9 Gastro-esophageal reflux disease without esophagitis; E03.9 Hypothyroidism, unspecified | CPT/HCPCS: G0463 ==

== ENCOUNTER → 2021-10-16 | Outpatient (CLI) | payer OTHER ==
[~2021-10-16] MED LIST changes: +CEFD125SUS PT
== END ==
LOC: LAB SHORT 10:30 → LAB 10:30
DX: R82.90 Unspecified abnormal findings in urine (principal)
CPT/HCPCS: 87077; 87086; 87186

== ENCOUNTER 2021-10-17 18:23 | Emergency (ER) | payer OTHER ==
[~2021-10-17] VITALS: Ht 172.7 cm; Wt 61.2 kg
[~2021-10-17 18:23] MED LIST changes: -CEFD125SUS PT
[2021-10-17 19:21] LABS: BASOPHILS ABSOLUTE AUTO 0.05 K/mm3 (0.00-0.23); BASOPHILS PERCENT AUTO 1 % (0-2); EOSINOPHILS ABSOLUTE AUTO 0.33 K/mm3 (0.00-0.68); EOSINOPHILS PERCENT AUTO 3 % (0-6); Hematocrit 41.8 % (37.0-53.0); Hemoglobin 13.3 g/dL (13.5-17.5); IMMATURE GRAN ABSOLUTE AUTO 0.06 K/mm3 (0.00-0.10); IMMATURE GRAN PERCENT AUTO 1 % (0-1); LYMPHOCYTES ABSOLUTE AUTO 1.03 K/mm3 (0.84-5.20); LYMPHOCYTES PERCENT AUTO 10 % (21-46); MONOCYTES ABSOLUTE AUTO 0.82 K/mm3 (0.16-1.47); MONOCYTES PERCENT AUTO 8 % (4-13); Mean Corpuscular HGB 28.7 pg (26.0-34.0); Mean Corpuscular HGB Conc 31.8 g/dL (31.5-36.5); Mean Corpuscular Volume 90 fL (80-100); Mean Platelet Volume 10.1 fL (9.1-12.4); NEUTROPHILS ABSOLUTE AUTO 7.79 K/mm3 (1.96-9.15); NEUTROPHILS PERCENT AUTO 77 % (41-73); Platelet Count 235 K/mm3 (150-400); RDW Coefficient Variation 15.8 % (11.7-14.2); RDW Standard Deviation 52.1 fL (35.1-46.3); Red Blood Cell Count 4.64 M/mm3 (4.30-5.90); White Blood Cell Count 10.08 K/mm3 (4.00-11.30)
[2021-10-17 19:40] LABS: Albumin, Blood 2.8 g/dL (3.4-5.0); Albumin/Globulin Ratio 0.5 (0.8-1.8); Bilirubin, Total 0.5 mg/dL (0.1-1.0); Bun/Creatinine Ratio 91.2 (12.0-20.0); Calcium, Blood 8.6 mg/dL (8.5-10.1); Creatinine, Blood 0.69 mg/dL (0.60-1.20); Globulin, Blood 5.2 g/dL (2.2-4.0); Potassium, Blood 4.4 mmol/L (3.5-5.5)
[2021-10-17 20:02] LABS: Source, Urine Foley catheter
[2021-10-17 20:05] LABS: Appearance, Urine Cloudy (Clear); Bilirubin, Urine Neg (Neg); Blood, Urine 5+ (Neg); Color, Urine Yellow (P-Yellow); Glucose Qualitative, Urine Neg (Neg); Ketones, Urine Neg (Neg); Leukocyte Esterase, Urine 3+ (Neg); Nitrite, Urine Neg (Neg); Protein, Urine 3+ (Neg); Urobilinogen, Urine NORM (Normal)
[2021-10-17 20:14] LABS: Triple Phosphate Crystals Mod /hpf; White Blood Cells, Urine TNTC /hpf (0-5)
[2021-10-17 20:16] LABS: Red Blood Cells, Urine TNTC /hpf (0-2)
[2021-10-17 20:20] LABS: Bacteria Many /hpf; Squamous Epithelial Cells Not Seen /hpf (Few)
[2021-10-17 20:25] LABS: Influenza A, PCR NEGATIVE (NEGATIVE); Influenza B, PCR NEGATIVE (NEGATIVE); Resp Syncytial Virus, PCR NEGATIVE (NEGATIVE); SARS-Cov-2 (COVID-19) PCR, MMC NEGATIVE (NEGATIVE)
[2021-10-17] MEDS ORDERED: CEFD125SUS PT (20:50)
== END 2021-10-18 00:01 | disposition home or self-care (01) ==
LOC: ER 18:23
PROVIDERS: Student in an Organized Health Care Education/Training Program
DX: N39.0 Urinary tract infection, site not specified (principal); I10 Essential (primary) hypertension; E03.9 Hypothyroidism, unspecified; K21.9 Gastro-esophageal reflux disease without esophagitis; Z20.822 Contact with and (suspected) exposure to COVID-19; Z79.899 Other long term (current) drug therapy
CPT/HCPCS: 0241U; 36415; 80053; 81001; 85025; A9270; J1885; J7030

== ENCOUNTER 2021-10-23 02:45 | Day surgery (SDC) | payer OTHER ==
[~2021-10-23 02:45] MED LIST changes: +CEFD125SUS PT
== END 2021-10-23 23:25 | disposition home or self-care (01) ==
LOC: WOUND 02:45
DX: L89.154 Pressure ulcer of sacral region, stage 4 (principal); L89.213 Pressure ulcer of right hip, stage 3; L89.212 Pressure ulcer of right hip, stage 2; G80.9 Cerebral palsy, unspecified; R77.0 Abnormality of albumin; E03.9 Hypothyroidism, unspecified; K21.9 Gastro-esophageal reflux disease without esophagitis
CPT/HCPCS: G0463

== ENCOUNTER 2021-11-18 06:34 | Day surgery (SDC) | payer OTHER | END 2021-11-18 23:28 | disposition home or self-care (01) | LOC: WOUND 06:34 | DX: L89.154 Pressure ulcer of sacral region, stage 4 (principal); L89.313 Pressure ulcer of right buttock, stage 3; G80.9 Cerebral palsy, unspecified; R77.0 Abnormality of albumin; K21.9 Gastro-esophageal reflux disease without esophagitis; E03.9 Hypothyroidism, unspecified | CPT/HCPCS: G0463 ==

== ENCOUNTER 2022-01-14 03:55 | Day surgery (SDC) | payer OTHER | END 2022-01-14 22:49 | disposition home or self-care (01) | LOC: WOUND 03:55 | DX: L89.154 Pressure ulcer of sacral region, stage 4 (principal); G80.9 Cerebral palsy, unspecified; R77.0 Abnormality of albumin; K21.9 Gastro-esophageal reflux disease without esophagitis; E03.9 Hypothyroidism, unspecified; Z87.2 Personal history of diseases of the skin and subcutaneous tissue | CPT/HCPCS: G0463 ==

== ENCOUNTER 2022-02-12 01:50 | Day surgery (SDC) | payer OTHER | END 2022-02-12 22:52 | disposition home or self-care (01) | LOC: WOUND 01:50 | DX: L89.154 Pressure ulcer of sacral region, stage 4 (principal); K21.9 Gastro-esophageal reflux disease without esophagitis; L89.213 Pressure ulcer of right hip, stage 3; G80.9 Cerebral palsy, unspecified | CPT/HCPCS: G0463 ==

== ENCOUNTER 2022-03-17 00:52 | Day surgery (SDC) | payer OTHER | END 2022-03-17 23:06 | disposition home or self-care (01) | LOC: WOUND 00:52 | DX: L89.154 Pressure ulcer of sacral region, stage 4 (principal); L89.213 Pressure ulcer of right hip, stage 3; R77.0 Abnormality of albumin; G80.9 Cerebral palsy, unspecified | CPT/HCPCS: G0463 ==

== ENCOUNTER → 2022-11-17 | Outpatient (CLI) | payer OTHER ==
[2022-11-17 14:45] LABS: Appearance, Urine Cloudy (Clear); Bilirubin, Urine Neg (Neg); Blood, Urine 4+ (Neg); Color, Urine Yellow (P-Yellow); Glucose Qualitative, Urine Neg (Neg); Ketones, Urine Neg (Neg); Leukocyte Esterase, Urine 3+ (Neg); Nitrite, Urine Neg (Neg); Protein, Urine 2+ (Neg); Urobilinogen, Urine NORM (Normal)
[2022-11-17 14:56] LABS: Triple Phosphate Crystals Mod /hpf; White Blood Cells, Urine TNTC /hpf (0-5)
[2022-11-17 14:57] LABS: Bacteria Many /hpf; Squamous Epithelial Cells Not Seen /hpf (Few)
== END ==
LOC: LAB 12:30 → LAB SHORT 12:30
PROVIDERS: Family Medicine
DX: R82.998 Other abnormal findings in urine (principal)
CPT/HCPCS: 81001; 87086

== ENCOUNTER 2024-04-16 06:34 | Day surgery (SDC) | payer OTHER ==
[~2024-04-16 06:34] MED LIST changes: +AMOXICILLI400 MG/5 M PT
== END 2024-04-16 23:00 | disposition home or self-care (01) ==
LOC: WOUND 06:34
DX: L89.313 Pressure ulcer of right buttock, stage 3 (principal); L89.153 Pressure ulcer of sacral region, stage 3; G80.9 Cerebral palsy, unspecified; K21.9 Gastro-esophageal reflux disease without esophagitis; E03.9 Hypothyroidism, unspecified; I25.10 Atherosclerotic heart disease of native coronary artery without angina pectoris
CPT/HCPCS: A6213; G0463

== ENCOUNTER 2024-04-24 09:30 | Day surgery (SDC) | payer OTHER | END 2024-04-24 23:00 | disposition home or self-care (01) | LOC: WOUND 09:30 | DX: L89.313 Pressure ulcer of right buttock, stage 3 (principal); L89.153 Pressure ulcer of sacral region, stage 3; G80.9 Cerebral palsy, unspecified; N31.9 Neuromuscular dysfunction of bladder, unspecified; N39.498 Other specified urinary incontinence; E03.9 Hypothyroidism, unspecified; K21.9 Gastro-esophageal reflux disease without esophagitis | CPT/HCPCS: A6213 ==

== ENCOUNTER 2024-05-10 00:57 | Day surgery (SDC) | payer OTHER | END 2024-05-10 23:00 | disposition home or self-care (01) | LOC: WOUND 00:57 | DX: L89.313 Pressure ulcer of right buttock, stage 3 (principal); L89.153 Pressure ulcer of sacral region, stage 3; G80.9 Cerebral palsy, unspecified | CPT/HCPCS: A6213 ==

== ENCOUNTER 2024-05-24 04:14 | Day surgery (SDC) | payer OTHER | END 2024-05-24 23:00 | disposition home or self-care (01) | LOC: WOUND 04:14 | DX: L89.313 Pressure ulcer of right buttock, stage 3 (principal); G80.9 Cerebral palsy, unspecified; N31.9 Neuromuscular dysfunction of bladder, unspecified; N39.498 Other specified urinary incontinence; E03.9 Hypothyroidism, unspecified; K21.9 Gastro-esophageal reflux disease without esophagitis | CPT/HCPCS: A6213 ==

== ENCOUNTER → 2024-06-19 | Day surgery (SDC) | payer OTHER | LOC: WOUND 02:20 | DX: L89.313 Pressure ulcer of right buttock, stage 3 (principal); L89.153 Pressure ulcer of sacral region, stage 3; G80.9 Cerebral palsy, unspecified | CPT/HCPCS: A6213; G0463 ==

== ENCOUNTER → 2024-07-10 | Day surgery (SDC) | payer OTHER | LOC: WOUND 03:52 | DX: L89.313 Pressure ulcer of right buttock, stage 3 (principal); G80.9 Cerebral palsy, unspecified; N31.9 Neuromuscular dysfunction of bladder, unspecified; N39.498 Other specified urinary incontinence; K21.9 Gastro-esophageal reflux disease without esophagitis; E03.9 Hypothyroidism, unspecified | CPT/HCPCS: A6213; G0463 ==

== ENCOUNTER 2024-07-24 02:34 | Day surgery (SDC) | payer OTHER | END 2024-07-24 23:25 | disposition home or self-care (01) | LOC: WOUND 02:34 | DX: L89.153 Pressure ulcer of sacral region, stage 3 (principal); L89.313 Pressure ulcer of right buttock, stage 3; G80.9 Cerebral palsy, unspecified; K21.9 Gastro-esophageal reflux disease without esophagitis; E03.9 Hypothyroidism, unspecified ==

== ENCOUNTER 2024-09-18 04:45 | Day surgery (SDC) | payer OTHER | END 2024-09-18 22:00 | disposition home or self-care (01) | LOC: WOUND 04:45 | DX: L89.313 Pressure ulcer of right buttock, stage 3 (principal); L89.153 Pressure ulcer of sacral region, stage 3; G80.9 Cerebral palsy, unspecified | CPT/HCPCS: A6213; G0463 ==

== ENCOUNTER 2024-10-02 00:58 | Day surgery (SDC) | payer OTHER | END 2024-10-02 22:51 | disposition home or self-care (01) | LOC: WOUND 00:58 | DX: L89.313 Pressure ulcer of right buttock, stage 3 (principal); G80.9 Cerebral palsy, unspecified; K21.9 Gastro-esophageal reflux disease without esophagitis | CPT/HCPCS: A6213; G0463 ==

== ENCOUNTER → 2024-10-16 | Day surgery (SDC) | payer OTHER | END | disposition home or self-care (01) | LOC: WOUND | DX: L89.313 Pressure ulcer of right buttock, stage 3 (principal); G80.9 Cerebral palsy, unspecified | CPT/HCPCS: A6213; G0463 ==

== ENCOUNTER 2024-11-08 03:31 | Day surgery (SDC) | payer OTHER | END 2024-11-08 23:00 | disposition home or self-care (01) | LOC: WOUND 03:31 | DX: L89.313 Pressure ulcer of right buttock, stage 3 (principal); G80.9 Cerebral palsy, unspecified; Z99.3 Dependence on wheelchair | CPT/HCPCS: A6213; G0463 ==

== ENCOUNTER 2024-11-27 02:13 | Day surgery (SDC) | payer OTHER | END 2024-11-27 23:00 | disposition home or self-care (01) | LOC: WOUND 02:13 | DX: L89.313 Pressure ulcer of right buttock, stage 3 (principal); G80.9 Cerebral palsy, unspecified; K21.9 Gastro-esophageal reflux disease without esophagitis; E03.9 Hypothyroidism, unspecified | CPT/HCPCS: A6213; G0463 ==

== ENCOUNTER 2024-12-18 00:59 | Day surgery (SDC) | payer OTHER | END 2024-12-18 23:00 | disposition home or self-care (01) | LOC: WOUND 00:59 | DX: L89.313 Pressure ulcer of right buttock, stage 3 (principal); G80.9 Cerebral palsy, unspecified; K21.9 Gastro-esophageal reflux disease without esophagitis; E03.9 Hypothyroidism, unspecified | CPT/HCPCS: A6213; G0463 ==

== ENCOUNTER 2025-01-22 00:30 | Day surgery (SDC) | payer OTHER | END 2025-01-22 22:45 | disposition home or self-care (01) | LOC: WOUND 00:30 | DX: L89.313 Pressure ulcer of right buttock, stage 3 (principal); G80.9 Cerebral palsy, unspecified; I25.10 Atherosclerotic heart disease of native coronary artery without angina pectoris | CPT/HCPCS: G0463 ==